=== PATIENT | female | born 1980 | race Caucasian/White ===

== ENCOUNTER 2021-11-20 11:41 | Outpatient (REF) | payer OTHER, SELFPAY ==
--- NOTE | ~2021-11-20 | XR_ITS ---
EXAMINATION: XR LUMBOSACRAL SPINE CLINICAL INFORMATION: Low back pain COMPARISON: None TECHNIQUE: Three views of the lumbosacral spine. FINDINGS: The vertebral bodies and posterior elements are normal. The disc spaces are preserved and the vertebral alignment is normal. The paraspinal soft tissues are normal. XR/XR lumbar spine 2-3V IMPRESSION: Unremarkable examination.
== END 2021-11-20 11:42 | disposition home or self-care (01) ==
LOC: HO.XRAY 11:41
PROVIDERS: PCP Internal Medicine Medical Oncology; Visit Provider Internal Medicine Medical Oncology
DX: M54.50 Low back pain, unspecified (principal)
CPT/HCPCS: 72100

== ENCOUNTER 2022-09-30 08:37 | Outpatient (REF) | payer OTHER, BC, SELFPAY ==
[2022-09-30 08:58] LABS: MANUAL DIFF FLAG NO
[2022-09-30 09:08] LABS: Basophils Percent Auto 0.3 % (0-2); Eosinophils Absolute Auto 0.1 X10*3/uL (0.0-0.4); Eosinophils Percent Auto 1.2 % (0-4); Hemoglobin 11.8 g/dl (12.0-16.0); Imm Gran Abs Auto 0.03 X10*3/uL (0.00-0.03); Imm Gran Pct Auto 0.5 % (0.0-0.4); Lymphocytes Percent Auto 30.5 % (20-40); Mean Corpuscular HGB Conc 32.8 g/dl (31.0-35.0); Mean Corpuscular Hemoglobin 29.6 pg (27.0-33.0); Mean Corpuscular Volume 90.5 fL (80.0-98.0); Mean Platelet Volume 10.3 fL (9.4-12.3); Monocytes Absolute Auto 0.5 X10*3/uL (0.1-1.2); Monocytes Percent Auto 7.4 % (2-11); Neutrophils Absolute Auto 3.9 x10*3/uL (2.0-8.3); Neutrophils Percent Auto 60.1 % (45-73); Platelet Count 241 X10*3/uL (160-400); Red Blood Count 3.98 X10*6/uL (4.20-5.50); Red Cell Distribution Width 11.9 % (11.0-16.0); White Blood Count 6.5 X10*3/uL (4.8-10.8)
[2022-09-30 10:12] LABS: Alanine Aminotransferase 22 U/L (0-31); Alkaline Phosphatase 34 U/L (39-117); Anion Gap 11 (12-20); Aspartate Amino Transferase 19 U/L (5-31); Bilirubin Total 0.6 mg/dL (0.0-1.0); Blood Urea Nitrogen 13 mg/dL (9-16); Carbon Dioxide 23 mmol/L (22-29); Chloride 109 mmol/L (96-108); Cholesterol 175 mg/dL; Estimated Glomerular Filt Rate > 60; Glucose Fasting 90 mg/dL (60-99); HDL Cholesterol 40 mg/dL; LDL Cholesterol Calculated 112 mg/dl; Potassium 4.3 mmol/L (3.3-5.1); Sodium 139 mmol/L (135-145); Total Protein 6.8 g/dL (6.5-8.0); Triglycerides 119 mg/dL
[2022-10-01 23:19] LABS: Rubella IgG Antibody 1.67 Index
[2022-10-05 22:47] LABS: Rubeola IgM (Measles) <1:20 titer
== END 2022-09-30 08:38 | disposition home or self-care (01) ==
LOC: HO.LAB 08:37
PROVIDERS: PCP Internal Medicine Medical Oncology; Visit Provider Internal Medicine Medical Oncology
DX: Z00.00 Encounter for general adult medical examination without abnormal findings (principal); E66.9 Obesity, unspecified; Z78.9 Other specified health status
CPT/HCPCS: 36415; 80053; 80061; 85025; 86735; 86762; 86765; 86787

== ENCOUNTER 2025-01-03 11:49 | Outpatient (AMB) | payer BC, SELFPAY ==
--- OUTSIDE RECORDS SUMMARY | 2024-04-26 06:30 | XMS_ITS ---
Author Organization [facility] Address [address] [place] [address] Care Team Providers Care Housekeeping Manager Name Role Phone Ananya PEREZ, Quentin Primary Care Provider Unavailab Isai Thomas Unavailable [phone] Allergies Allergen (clinical drug ingredient) Drug/Non Drug Allergy documented on EMR Reaction Allergy Type Onset Date Status Penicillin Short of breath, rash Drug Allergy Active Encounters Encounter Location Date Provider Diagnosis [facility] [address] [address] 04/26/2024 Isai Clark Plan Of Treatment No Information Progress Notes * AKANKSHA NellyDOB: (44 yo F)Acc No.[id number]:04/26/2024 Progress Notes Patient: Nelly MACKEY Provider: Daina Clark DPM :1980 A ge:43 Y S ex:Female Date:04/26/2024 Address:[address] [place], [place] [id number] Pcp:Quentin Hare MD Subjective: * Chief Complaints: * * Medical History: B ack,Hip,and Knee pain. * Allergies: P enicillin: Short of breath, rash. Objective: * Vitals: Assessment: Plan: * Treatment: * Images: * The named appointment provid er may or may not be the originator of this progress note, and it is not deemed complete until electronically signed by the appointment provider. Sign off status: Pending * Provider: Daina Clark DPM Date: 1 06/26/2023 Generated for Kalyan bynum/Juanita/Tasha on: 0 01/03/2025 12:27 PM EDT
--- OUTSIDE RECORDS SUMMARY | 2024-06-08 09:45 | XMS_ITS ---
Author Organization Quentin Hare III, MD Address [address] [place] [address] Care Team Providers Care International Sales Representative Name Role Phone Quentin Hare Primary Care Provider Allergies Allergen (clinical drug ingredient) Drug/Non Drug Allergy documented on EMR Reaction Allergy Type Onset Date Status Seasonale Unknown Drug Allergy Active Penicillin rash Drug Allergy 05/08/2021 Activ e REASON FOR VISIT Recent onset migraines, Chronic low back pain, Polycystic ovarian syndrome, Obesity Medications Medication SIG (Take, Route, Frequency, Duration) Notes Start Date End Date Status predniSONE 20 MG 1 tablet with food o r milk Orally Once a day 12/07/2023 Active Benadryl 25 MG 1 capsule as needed Orally as needed Active SUMAtriptan Succinate 50 MG 1 tablet as needed, may take second dose at least 2 hours after first dose Orally Once or twice a day 05/11/2024 Active Social History Tobacco Use: Social History Observation Description Date Details (start date - stop date) Never Smoker NA - NA Sex Assigned At : Social History Observation Description Sex Assigned At Female Tobacco Use/Smoking Question Answer Notes Patient is a nonsmoker Additional Findings: Tobacco Non-User Aggressive non-smoker Vital Signs Height 64 in 06/08/2024 Weight 193 lbs 06/08/2024 BMI 33.12 kg/m2 06/08/2024 Encounters Encounter Location Date Provider Diagnosis Quentin Hare III, MD [address] [place] [address] [place] [address] 06/08/2024 Quentin Hare Obesity E66.9 ; Polycystic ovarian disease E28.2 ; Bilateral low back pain without sciatica M54.5 and Episodic migraine G43.909 Assessments Encounter Date Diagnosis (ICD Code) Assessment Notes Treatment Notes Treatment Clinical Notes 06/08/2024 Obesity (ICD-10 - E66.9) We have reviewed her weight loss strategy. We have reviewed diet and nutrition. Continue her attempts at weight loss at a rate of one half pound per week. 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 06/08/2024 Bilateral low back pain without sciatica (ICD-10 - M54.5) Her back pain has resolved and has not been a problem for her recently. I have cautioned her to avoid severe heavy lifting. 06/08/2024 Episodic migraine (ICD-10 - G43.909) She reports compliance with her medication. She is beginning to improve. She has seen the neurologist to begin her on propranolol. The headaches are slightly better but she has occasional dizziness which may be low blood pressure. She was given an appointment to come to the office. Her previous blood pressures have been unremarkable. Plan Of Treatment Medication Medication Name Sig Start Date Stop Date Notes predniSONE 20 MG 1 tablet with food o r milk Orally Once a day 12/07/2023 Benadryl 25 MG 1 capsule as needed Orally as needed SUMAtriptan Succinate 50 MG 1 tablet as needed, may take second dose at least 2 hours after first dose Orally Once or twice a day 05/11/2024 Next Appt Details Follow Up: As Scheduled, Nex t week, Reason: OV, To check if Propranolol is beginning to work for her migraines Provider Name:Quentin Hare, 06/21/2025 03:30:00 PM, [address] [place] [address] [address] [facility], [place], [address], Progress Notes * Nelly FELIXDOB: (43 yo F)Acc No.[id number]:06/08/2024 Patient: Donald ANDERSON Nelly LEA Provider: Shankar Hare MD :1980 A ge:43 Y S ex:Female Date:06/08/2024 Address:[address] [place] [address], [id number] Subjective: * Chief Complaints: * R ecent onset migrainesChronic low back painPolycystic ovarian syndromeObesity * HPI: * : Telehealth L ocation of provider rendering services: { ...} [address] [facility] [address] L ocation of patient: radha mcdaniel listed in demographics for today's visit P atient identification confirmed using: LA Santos ame T elehealth method: T elephone only. Patient not visible to care provider. C onsent: P atient verbally consented to treatment, Patient verbally consented to billing insurance company, Patient informed of any privacy concerns related to method of visit T otal time spent with patient (mins) 1 5 The patient, a 43-year-old female, has been suffering from migraines. She has been seeing a neurologist, Dr. Miles, who prescribed Propranolol for her condition. However, the patient reported that the medication has not been effective so far. She has been advised to continue taking the medication for a month. The patient also reported experiencing low blood pressure and a high pulse rate since starting the medication. She has been feeling a little dizzy but not too severe. The patient also mentioned a past surgery on her leg. * ROS: G eneral/Constitutional: pain C hronic low back pain. C hills d enies. F atigue a dmits. F ever d enies. E NT: Decreased hearing d enies. R espiratory: Cough d enies. C ardiovascular: Chest pain with exertion d enies. D yspnea on exertion?denies. S hortness of breath d enies. G astrointestinal: Constipation o ccasional. D ecreased appetite d enies. D iarrhea d enies. H eartburn d enies. N ausea d enies. R ectal bleeding d enies. V omiting d enies. H ematology: bruising d enies. p etechiae d enies. S wollen glands n one have been noted. G enitourinary: Frequent urination d enies. M usculoskeletal: Muscle aches d enies. P ainful joints d enies. S ciatica d enies. W eakness d enies. S kin: Itching d enies. R artis d enies. S kin lesion(s)?denies. N eurologic: Difficulty speaking d enies. D izziness A ssociated with the use of propranolol in the low blood pressure. H eadache d enies. L ow back pain d enies. P sychiatric: Depressed mood d enies. * Medical History: * Surgical History: N explanon 11/2022No history Leg surgery * Hospitalization/Major Diagno stic Procedure: N o history * Family History: F ather: alive 54 yrs, hyperlipidemia, diagnosed with Hyperlipidemia. M other: alive 52 yrs. 4 brother(s) , 4 sister(s) - healthy. . She has no children. 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. She was born in [place]. * Medications: T akingSUMAtriptan Succinate 50 MG Tablet 1 tablet as needed, may take second dose at least 2 hours after first dose Orally Once or twice a day Benadryl 25 MG Capsule 1 capsule as needed Orally as needed predniSONE 20 MG Tablet 1 tablet with food or milk Orally Once a day Medication List reviewed and reconciled with the patientTaking SUMAtriptan Succinate 50 MG Tablet 1 tablet as needed, may take second dose at least 2 hours after first dose Orally Once or twice a day Taking Benadryl 25 MG Capsule 1 capsule as needed Orally as needed Taking predniSONE 20 MG Tablet 1 tablet with food or milk Orally Once a day Medication List reviewed and reconciled with the patient * Allergies: P enicillin: rash - Allergy - Criticality High - Onset Date 05/08/2021easonale: Allergyno[Allergies Verified] Objective: * Vitals: H t: 64, Wt: 193, BMI:33.12, Ht-cm: 162.56, Wt-k.54. Assessment: * Assessment: 1. O besity - E66.9 (Primary) N otes :We have reviewed her weight loss strategy. We have reviewed diet and nutrition. Continue her attempts at weight loss at a rate of one half pound per week. 2 . 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 3 . B ilateral low back pain without sciatica - M54.5 N otes :Her back pain has resolved and has not been a problem for her recently. I have cautioned her to avoid severe heavy lifting. 4 . E pisodic migraine - G43.909 N otes :She reports compliance with her medication. She is beginning to improve. She has seen the neurologist to begin her on propranolol. The headaches are slightly better but she has occasional dizziness which may be low blood pressure. She was given an appointment to come to the office. Her previous blood pressures have been unremarkable. Plan: * Treatment: * Procedure Codes: 9 [id number] PHONE E/M BY PHYS 11-20 MIN * Preventive Medicine: Counseling: C are goal follow-up plan: Counseling for abnormal BMI given Y es Above Normal BMI Follow-up D ietary management education, guidance, and counseling, Dietary needs education * Follow Up: A s Scheduled, Next week (Reason: OV, To check if Propranolol is beginning to work for her migraines) * Images: * Sign off status: Completed true * Provider: Shankar Hare MD Date: 0 06/08/2024 Generated for Kalyan bynum/Juanita/Chemoitting on: 0 01/03/2025 12:27 PM EDT History and Physical Notes * HPI (History of Present Illness) Category Sub-Category Detail Notes Telehealth Location of [facility] services:: {...} [address] [place] [address] Location of patient:: address listed in demographics for today's visit Patient identification confirmed using:: Name, Telehealth method:: Telephone only. Hailee ent not visible to care provider. Consent:: Patient verbally c onsented to treatment, Patient verbally consented to billing insurance company, Patient informed of any privacy concerns related to method of visit Total time spent with patient (mins): 15
--- NOTE | 2025-01-03 11:55 | A.OFFVIS_ITS ---
Vital Signs 01/03/25 11:56 Height 5 ft 4 in Intake Visit Reasons: 6m migraine/ Conf Allergies Penicillins Allergy (Unknown, Verified 01/03/25 12:02) Unknown Medication List - Last Reconciled 01/03/25 by Dina Wilkins CNP propranolol 10 mg PO BID sumatriptan succinate mg PO HPI Comments Details: 44-year-old RH woman with migraine and tremor. She was doing okay. Migraines were much better with propranolol. No medication side effects. She has not had to use sumatriptan recently. Tremor was also better. No functional impairment. [facility] Medical History (Updated 01/03/25 @ 12:00 by Dina Wilkins CNP) Benign essential tremor Migraine equivalent syndrome Migraine without aura Review of Systems Const Denies chills, Denies daytime sleepiness, Denies difficulty sleeping, Denies fatigue, Denies fever(s), Denies frequent falls, Reports headache(s), Denies increased appetite, Denies poor appetite, Denies snoring, Denies weakness, Yang es weight gain and Denies weight loss Eyes Denies loss of vision ENT Denies vertigo, Denies dizziness and Reports headache(s) Card Denies chest pain at rest, Denies chest pain with activity, Denies syncope, Denies leg edema and Denies palpitations Resp Denies snoring GI Denies constipation, Denies heartburn, Denies diarrhea and Denies nausea Denies urinary frequency, Denies urinary incontinence and Denies urinary urgency Musc Denies abnormal gait, Denies numbness and Denies tingling Skin/Breast Denies dry skin and Denies rash Neuro Denies abnormal gait, Denies vertigo, Denies dizziness, Denies syncope, Denies frequent falls, Reports headache(s), Denies lack of coordination, Denies loss of vision, Denies memory loss, Denies numbness, Denies restless legs, Denies seizure-like activity, Denies tingling, Denies paresthesias, Reports tremor(s) and Denies weakness Psych Denies anxiety, Denies depression, Denies auditory hallucinations, Denies memory loss, Denies visual hallucinations and Denies suicidal ideation Endo Denies fatigue and Denies palpitations Physical Exam Const Other: General Appearance:? normal, in no acute distress. Heart:? S1, S2 normal, no murmurs. Lungs:? clear anteriorly and posteriorly. Musculoskeletal:? normal. Extremities:? no edema. Psych:? alert, oriented, cognitive function intact, cooperative with exam. Neuro Other: Mental Status:?Normal attention, orientation, memory and affect.? Cranial Nerves:?Pupils are equal, round and reactive to light. External occular muscles are intact. Visual chowdhury are full. Face is symmetrical. Facial sensations are normal. Tongue is midline. Palate elevates symmetrically. Shoulder shrugging is normal. Hearing to bedside conversation is normal. Sensory Exam:?....? Coordination:?No ataxia,?no titubation.? Gait Exam: Within normal limits. Cerebellar Signs:?[id number] and dllh-no-wvwz is normal.? Extrapyramidal System:?No tremor, rigidity with normal facial expressions.? Pronator Drift:?Not present.? Involuntary Movements:?Mild bilateral hand tremor in outstretched position. Speech:?Normal.? Assessment & Plan Assessment & Plan (1) Migraine without aura: Code(s): G43.009 - Migraine without aura, not intractable, without status migrainosus Category: Medical Qualifiers: Status migrainosus presence: without status migrainosus Intractability: not intractable Qualified Code(s): G43.009 - Migraine without aura, not intractable, without status migrainosus Plan: Continue propranolol 10mg 1 tablet twice a day. Continue sumatriptan 50mg 1 tablet as needed for migraine. (2) Migraine equivalent syndrome: Code(s): G43.109 - Migraine with aura, not intractable, without status migrainosus Category: Medical (3) Benign essential tremor: Code(s): G25.0 - Essential tremor Category: Medical Plan: Propranolol is also used to treat tremor. Plan . Medications: New propranolol 10 mg PO BID 180 tabs 1RF 90 days sumatriptan succinate take 1 tab at onset of headache; if no relief may repeat 1 tab after at least 2 hrs; PO 10 tabs 5RF 30 days Discontinued propranolol Discontinued Reason: Order 10 mg PO BID sumatriptan succinate Discontinued Reason: Order PO Coding Level of Care Code Est Pt Level 4 (00920) Diagnoses Migraine without aura and without status migrainosus, not intractable G43.009 Status migrainosus presence: without status migrainosus Intractability: not intractable Migraine equivalent syndrome G43.109 Benign essential tremor G25.0
--- OUTSIDE RECORDS SUMMARY | 2025-01-03 12:27 | XMS_ITS | Clinical Summary ---
Author Organization [facility] Address [address] [place] [address] Care Team Providers Care Bottom Man Name Role Phone Unavailable Primary Care Provider Unavailabl e Social History Tobacco Use Types Packs/Day Years Used Date Smoking Tobacco: Never Assessed Comments Unknown Sex and Gender Information Value Date Recorded Sex Assigned at Not on file Legal Sex Female 10:45 PM EST Gender Identity Not on file Sexual Orientation Not on file Plan of Treatment Health Maintenance Due Date Last Done Comments Breast Cancer Screening 1980 DTaP,Tdap,and Td Vaccines (1 - Tdap) 2000 Hepatitis B Vaccines (1 of 3 - 19+ 3-dose series) 2000 Cervical Cancer Screening: P ap Smear 2002 COVID-19 Vaccine (2023-2 5 season) 2024 Depression Screening 06/06/2024 Influenza Vaccine (#1) 2025 HIB Vaccines Aged Out No longer eligi ble based on patient's age to complete this topic HPV Vaccines Aged Out No longer eligi ble based on patient's age to complete this topic Hepatitis A Vaccines Aged Out No long er eligible based on patient's age to complete this topic IPV Vaccines Aged Out No longer eligi ble based on patient's age to complete this topic MMR Vaccines Aged Out No longer eligi ble based on patient's age to complete this topic Meningococcal ACWY Vaccine Aged Out N o longer eligible based on patient's age to complete this topic Meningococcal B Vaccine Aged Out No l onger eligible based on patient's age to complete this topic Pneumococcal Vaccine: Pediat rics (0 to 5 Years) and At-Risk Patients (6 to 49 Years) Aged Out No longer eligible b ased on patient's age to complete this topic RSV Immunization Patients Un jenae 20 months Aged Out No longer eligible b ased on patient's age to complete this topic Varicella Vaccines Aged Out No longer eligible based on patient's age to complete this topic
== END 2025-01-03 12:08 | disposition home or self-care (01) ==
LOC: HO.HSM 11:49
PROVIDERS: PCP Internal Medicine Medical Oncology; Referring Provider Internal Medicine Medical Oncology; Visit Provider Registered Nurse
DX: G43.009 Migraine without aura, not intractable, without status migrainosus (principal); G43.109 Migraine with aura, not intractable, without status migrainosus; G25.0 Essential tremor
CPT/HCPCS: 99214